=== PATIENT | female | born 1940 | race Caucasian/White ===

== ENCOUNTER 2024-03-27 08:23 | Inpatient (IN) | payer MEDICARE, OTHER ==
[2024-03-22 16:13] VITALS: BMI 22.4
[~2024-03-27 08:23] MED LIST: ALPRAZolam 0.25 MG TAB PO PRN; ALPRAZolam 0.5 MG TAB PO PRN; ASPIRIN 81 MG PO PRN; CLOPIDOGREL 75 MG TAB PO PRN; HYDROmorphone 0.5 MG/0.5 ML SYRINGE IVP PRN; LIDOCAINE 1% (10MG/ML) FOR IV START INTRADERMA PRN
[2024-03-27] MEDS: SODIUM CHLORIDE 0.9% 1,000 ML in EMPTY BAG 1 BAG IV ONE (08:50)
[2024-03-27 08:51] LABS: Glucose,Whole Blood 89 mg/dL (70-110)
[2024-03-27] MEDS ORDERED: RX INFO: IV CONTRAST WAS GIVEN 1 EACH MISC MISCELLANE PRN (09:00)
[2024-03-27] MEDS: TICAGRELOR 90 MG TAB PO STA (09:16)
[2024-03-27] MEDS: IV FLUID CONTINUATION 1,000 ML IV ONE (11:45)
[2024-03-27] MEDS: LIDOCAINE 1% INJ 10MG/ML (20 ML MDV) SQ ONE (11:58)
[2024-03-27] MEDS: HEPARIN SODIUM 1,000 UN/ML (10ML VL) IV ONE (12:11)
[2024-03-27] MEDS: IOPAMIDOL-370 100ML BTL INJ ONE (12:40)
[2024-03-27] MEDS ORDERED: ATROPINE SULFATE 0.1 MG/ML 10ML SYRINGE IV PRN (12:49)
[2024-03-27] MEDS ORDERED: MAG HYDROX/AL HYDROX/SIMETH 30 ML CUP PO PRN (12:49)
[2024-03-27] MEDS: hydrALAZINE HCL 20 MG/ML 1 ML VIAL IV ONE (12:49)
--- NOTE | 2024-03-27 13:03 | P.PCN ---
Date of Procedure: 03/27/24 Operative Findings: Carotid artery stenting report Performing physician Gigi Delgado MD Procedure performed An aortic arch angiogram Successful stenting of the ostial left common carotid artery using 7.0 x 29 mm balloon expandable stent to the Left common and left internal carotid angiogram Ultrasound-guided access of the right common femoral artery and right common femoral artery angiogram Indication Severe carotid atherosclerosis Approach The right common femoral artery Complications None Level of sedation Moderate with sedation length of 43 minutes Procedure description After obtaining informed consent the patient was brought to the cardiac [employer]. The right common femoral artery was cannulated using micropuncture technique under ultrasound guidance a micropuncture wire passed easily then I initially predilated the artery using short 6 Czech dilator before I placed a 9 cm 6 Czech catheter sheath which was advanced all the way to the proximal descending aorta over a 3 5 stiff Glidewire under fluoroscopic guidance. Subsequently I did an aortic arch angiogram using 6 Czech pigtail catheter which was placed at the aortic root and using digital subtraction and ball injection. Aortic arch angiogram revealed type II/type III aortic arch with critical disease involving the ostial left common carotid artery. I decided to intervene on the left carotid artery. Anticoagulation was initiated using heparin with continuous ACT monitoring. Subsequently I was able to wire the left common carotid artery using a 035 stiff Glidewire. Giving the amount of calcification and giving that we will doing the procedure without distal protection I decided to do direct stenting. Attempting advancing a 7.0 x 29 mm balloon expandable stent was unsuccessful because of the extreme tortuosity. I was able to exchange my 035 stiff Glidewire into a 3 5 super core wire using a 035 quick cross catheter. With that I was able to advance the stent to the proximal/ostial left common carotid artery where the stent was positioned under fluoroscopy guidance and deployed under fluoroscopy guidance with subsequently I flared the ostium using the stent balloon. An aortic arch angiogram was performed again and showed excellent angiographic results and the procedure was completed with no complication Postprocedure management Dual antiplatelet therapy Consider either medical treatment or revascularization of the left internal carotid artery Smoking cessation Follow-up with the patient
--- NOTE | 2024-03-27 14:47 | IR ---
EXAMINATION TYPE: IR stent intravas non coronary DATE OF EXAM: 03/27/2024 COMPARISON: NONE HISTORY: Fluoroscopy time. Fluoroscopy was provided to the referring clinician. [facility], , 03/27/2024 2:44 PM
[2024-03-27] MEDS: lisinopriL 10 MG TAB PO SCH (15:51)
[2024-03-27] MEDS: amLODIPine 10 MG TAB PO SCH (15:52)
[2024-03-27] MEDS: atenoloL 50 MG TAB PO SCH (15:52)
[2024-03-27] MEDS: LACTATED RINGERS 1,000 ML IV SCH (16:13)
[2024-03-27 16:49] LABS: Glucose,Whole Blood 190 mg/dL (70-110)
[2024-03-27 20:26] LABS: Glucose,Whole Blood 89 mg/dL (70-110)
[2024-03-27] MEDS: TICAGRELOR 90 MG TAB PO SCH (20:46)
[2024-03-28 04:12] VITALS: PULSE 61
[2024-03-28 05:49] LABS: Glucose,Whole Blood 93 mg/dL (70-110)
[2024-03-28] MEDS: PANTOPRAZOLE 40 MG TABLET PO SCH (06:21)
[2024-03-28 06:58] LABS: Basophils % (A) 0 %; Eosinophils # (A) 0.1 k/uL (0-0.7); Eosinophils % (A) 2 %; HCT 38.2 % (34.0-46.0); HGB 11.9 gm/dL (11.4-16.0); Hypochromasia Moderate; Lymphocytes # (A) 0.4 k/uL (1.0-4.8); Lymphocytes % (A) 8 %; MCH 28.5 pg (25.0-35.0); MCHC 31.1 g/dL (31.0-37.0); MCV 91.7 fL (80.0-100.0); Mean Platelet Volume 7.2; Monocytes # (A) 0.3 k/uL (0-1.0); Monocytes % (A) 5 %; Neutrophils # (A) 4.2 k/uL (1.3-7.7); Neutrophils % (A) 82 %; Platelet Count 204 k/uL (150-450); RBC 4.17 m/uL (3.80-5.40); RDW 15.2 % (11.5-15.5); WBC 5.1 k/uL (3.8-10.6)
[2024-03-28 07:26] LABS: African American GFR (CKD) 80 (>60 ml/min/1.73 sqM); Anion Gap 3 mmol/L; Blood Urea Nitrogen 15 mg/dL (7-17); Carbon Dioxide 27 mmol/L (22-30); Chloride 112 mmol/L (98-107); Glucose 95 mg/dL (74-99); Non-African American GFR(CKD) 69 (>60 ml/min/1.73 sqM); Potassium 4.1 mmol/L (3.5-5.1); Sodium 142 mmol/L (137-145)
[2024-03-28] MEDS: ASPIRIN 81 MG PO SCH (08:23)
[2024-03-28] MEDS: CHOLECALCIFEROL 25 MCG (1000 IU) TABLET PO SCH (08:23)
[2024-03-28] MEDS: VIT A,C & E-LUTEIN-MINERALS 1 EACH TAB PO SCH (08:23)
[2024-03-28] MEDS: MULTIVITAMINS, THERA 1 EACH TAB PO SCH (08:24)
[2024-03-28] MEDS: CALCIUM CARB-VIT D 500 MG-5 MCG TAB PO SCH (08:24)
[2024-03-28 08:27] VITALS: BP 155/62; RESP 20; TEMP 97.8
[2024-03-28] MEDS ORDERED: lisinopriL 10 MG TAB PO SCH (09:00)
[2024-03-28] MEDS ORDERED: amLODIPine 2.5 MG TAB PO SCH (09:00)
[2024-03-28] MEDS ORDERED: FENOFIBRATE 160 MG TAB PO SCH (09:00)
[2024-03-28] MEDS ORDERED: ATORVASTATIN 40 MG TAB PO SCH (09:00)
[2024-03-28] MEDS ORDERED: atenoloL 50 MG TAB PO SCH (09:00)
== END 2024-03-28 11:39 | disposition home or self-care (01) | DRG 36 ==
LOC: 2ORMAIN 08:23 → 3SCARD 15:17
PROVIDERS: ADMIT Internal Medicine Interventional Cardiology; ATTEND Internal Medicine Interventional Cardiology
PROC: B41F1ZZ Fluoroscopy of Right Lower Extremity Arteries using Low Osmolar Contrast (ICD-10-PCS; 2024-03-27)
PROC: B4101ZZ Fluoroscopy of Abdominal Aorta using Low Osmolar Contrast (ICD-10-PCS; 2024-03-27)
PROC: 037J3DZ Dilation of Left Common Carotid Artery with Intraluminal Device, Percutaneous Approach (ICD-10-PCS; principal; 2024-03-27 10:00)
PROC: B3171ZZ Fluoroscopy of Left Internal Carotid Artery using Low Osmolar Contrast (ICD-10-PCS; 2024-03-27 10:00)
DX: I65.23 Occlusion and stenosis of bilateral carotid arteries (principal); E78.5 Hyperlipidemia, unspecified; E11.9 Type 2 diabetes mellitus without complications; I10 Essential (primary) hypertension; Z88.2 Allergy status to sulfonamides; Z91.048 Other nonmedicinal substance allergy status; Z88.8 Allergy status to other drugs, medicaments and biological substances; Z88.1 Allergy status to other antibiotic agents; Z71.6 Tobacco abuse counseling
CPT/HCPCS: 37216; 76937; 80048; 85025